=== PATIENT | male | born 1995 | race African-American/Black ===

== ENCOUNTER 2018-01-18 17:43 | Emergency (ER) | payer MEDICAID, OTHER ==
--- NOTE | 2018-01-18 18:13 | ER Document Report ---
ED Medical Screen (RME) - General Chief Complaint: Chest Pain Stated Complaint: CHEST/UPPER BODY PAIN Time Seen by Provider: 01/18/18 18:12 Mode of Arrival: Ambulatory Information source: Patient Notes: This is a 22-year-old man with no significant medical problems that was experiencing some chest pain last night for approximately 15 minutes. He denies any palpitations, lightheadedness or shortness of breath. He states he was working at [employer] and is been lifting a lot today and started having chest pain, back pain. He denies any shortness of breath. Medications: None Past medical history: None Social: He smokes rarely cigarettes. He denies any marijuana use. He adamantly denies cocaine. Family history: He denies any heart disease in his mother or father. He has 3 younger sisters and they do not have any medical problems. Patient denies any family history of exertional syncope or sudden . TRAVEL OUTSIDE OF THE [place] IN LAST 30 DAYS: No - HPI Onset: Yesterday Onset/Duration: Sudden Quality of pain: Dull Severity: Moderate Pain Level: 3 Associated Symptoms: Chest pain. denies: Nausea, Shortness of breath, Vomiting Exacerbated by: Movement Relieved by: Remaining still Similar symptoms previously: Yes Recently seen / treated by doctor: No - Related Data Smoking: Non-smoker Frequency of alcohol use: None Drug Abuse: None. No: Cocaine, Marijuana Allergies/Adverse Reactions: No Known Allergies Allergy (Verified 01/18/18 17:44) Past Medical History - General Information source: Patient - Social History Cigarette use (# per day): No Chew tobacco use (# tins/day): No Frequency of alcohol use: None Drug Abuse: None Lives with: Family Family history: None - Past Medical History Cardiac Medical History: Reports: None Pulmonary Medical History: Reports: Hx Asthma Renal/ Medical History: Denies: Hx Peritoneal Dialysis Surgical Hx: Negative - Immunizations Immunizations up to date: Yes Hx Diphtheria, Pertussis, Tetanus Vaccination: Yes Review of Systems - Review of Systems Constitutional: denies: Chills, Fever EENT: No symptoms reported Cardiovascular: Chest pain. denies: Palpitations, Heart racing, Syncope, Dizziness, Lightheaded Respiratory: denies: Cough, Short of breath, Wheezing Gastrointestinal: No symptoms reported Genitourinary: No symptoms reported Male Genitourinary: No symptoms reported Musculoskeletal: No symptoms reported Skin: No symptoms reported Hematologic/Lymphatic: No symptoms reported Neurological/Psychological: No symptoms reported Physical Exam - Vital signs Vitals: Temp Pulse Resp BP Pulse Ox 99.3 F 71 16 121/73 71 L 01/18/18 17:54 01/18/18 17:54 01/18/18 17:54 01/18/18 17:54 01/18/18 17:54 Notes: Physical exam: GENERAL: 22-year-old man, alert and oriented 3, no acute distress HEAD: Atraumatic, normocephalic. EYES: Pupils equal round and reactive to light, extraocular movements intact, sclera anicteric, conjunctiva are normal. ENT: TMs normal, nares patent, oropharynx clear without exudates. Moist mucous membranes. NECK: Normal range of motion, supple without obvious mass or JVD. LUNGS: Breath sounds clear to auscultation bilaterally and equal. No wheezes rales or rhonchi. HEART: Regular rate and rhythm without murmurs, rubs or gallops. ABDOMEN: Soft, normoactive bowel sounds. No tenderness to palpation. No guarding, no rebound. No masses appreciated. EXTREMITIES: Normal range of motion, no pitting or edema. No clubbing or cyanosis. NEUROLOGICAL: Cranial nerves II through XII grossly intact. Normal speech, moving all extremities. PSYCH: Normal mood, normal affect. SKIN: Warm, Dry, normal turgor, no rashes or lesions noted. Course - Vital Signs Vital signs: Temp Pulse Resp BP Pulse Ox 99.3 F 71 16 121/73 71 L 01/18/18 17:54 01/18/18 17:54 01/18/18 17:54 01/18/18 17:54 01/18/18 17:54 - Laboratory Result Diagrams: 01/18/18 18:24 01/18/18 18:24 Laboratory results interpreted by me: 01/18/18 18:24 ALT 17 L - Diagnostic Test Radiology reviewed: Image reviewed, Reports reviewed - Chest x-ray shows no or infiltrates. - EKG Interpretation by Me Rate: Normal Rhythm: NSR - EKG shows normal sinus rhythm with a ventricular rate of 62, no acute ST-T wave changes Doctor's Discharge - Discharge Clinical Impression: Chest wall pain Condition: Stable Disposition: HOME, SELF-CARE Instructions: Chest Wall Pain ([facility]) Additional Instructions: As we discussed, your chest x-ray looked quite good. Your EKG was normal. Your blood work included anemia studies, kidney studies, heart enzymes and liver function tests. All these labs were normal. Ultimately, I think the pain that you are experiencing is musculoskeletal. You could try ibuprofen for the pain. The test today look quite good. I would like you to follow-up with a primary care doctor. I left the number for primary care doctors below. In the meantime, return to the emergency room for worsening pain, shortness of breath or any concerns that she getting worse. Dr. Mirta Vazquez [address], [place] [address] [phone] Dr Jacobs Address: [address] [place] [address] [place] [address] Dr Hernandez Address: [address] [place] [address] [place] [address] Referrals: BRAXTON MCCULLOUGH MD [Primary Care Provider] - Follow up as needed
[2018-01-18 18:51] LABS: ABSOLUTE LYMPHOCYTES (AUTO) 0.9 10^3/uL (0.5-4.7); ABSOLUTE MONOCYTES (AUTO) 0.2 10^3/uL (0.1-1.4); ABSOLUTE NEUT (AUTO) 3.9 10^3/uL (1.7-8.2); BASOPHILS % (AUTO) 0.4 % (0-2); EOSINOPHILS % (AUTO) 0.4 % (0-6); HEMOGLOBIN 14.5 g/dL (13.5-17.0); LYMPHOCYTES % (AUTO) 17.3 % (13-45); MEAN CORPUSCULAR HEMOGLOBIN 27.5 pg (27.0-33.4); MEAN CORPUSCULAR HGB CONC 33.7 g/dL (32.0-36.0); MEAN CORPUSCULAR VOLUME 82 fl (80-97); MONOCYTES % (AUTO) 4.6 % (3-13); PLATELET COUNT 227 10^3/uL (150-450); RED BLOOD COUNT 5.27 10^6/uL (4.35-5.55); RED CELL DISTRIBUTION WIDTH 13.2 % (11.5-14.0); SEGMENTED NEUTROPHILS % (AUTO) 77.3 % (42-78); TOTAL CELLS COUNTED % (AUTO) 100 %; WHITE BLOOD COUNT 5.1 10^3/uL (4.0-10.5)
--- NOTE | 2018-01-18 18:51 | RADIOLOGY REPORT (SQ) ---
EXAM DESCRIPTION: CHEST 2 VIEWS COMPLETED DATE/TIME: 01/18/2018 6:41 pm REASON FOR STUDY: chest pain COMPARISON: 07/24/2013 EXAM PARAMETERS: NUMBER OF VIEWS: two views TECHNIQUE: Digital Frontal and Lateral radiographic views of the chest acquired. RADIATION DOSE: NA LIMITATIONS: none FINDINGS: LUNGS AND PLEURA: No opacities, masses or pneumothorax. No pleural effusion. MEDIASTINUM AND HILAR STRUCTURES: No masses or contour abnormalities. HEART AND VASCULAR STRUCTURES: Heart normal size. No evidence for failure. BONES: No acute findings. HARDWARE: None in the chest. OTHER: No other significant finding. IMPRESSION: NO ACUTE RADIOGRAPHIC FINDING IN THE CHEST. TECHNICAL DOCUMENTATION: JOB ID: [id number] [employer]- All Rights Reserved Reading location - IP/workstation name: [email or web address]
[2018-01-18 19:05] LABS: ALANINE AMINOTRANSFERASE 17 U/L (21-72); ALBUMIN 4.7 g/dL (3.5-5.0); ALKALINE PHOSPHATASE 55 U/L (38-126); ANION GAP 14 (5-19); ASPARTATE AMINO TRANSFERASE 20 U/L (17-59); BILIRUBIN,DIRECT 0.3 mg/dL (0.0-0.4); BILIRUBIN,TOTAL 0.9 mg/dL (0.2-1.3); BLOOD UREA NITROGEN 18 mg/dL (7-20); CARBON DIOXIDE 28 mmol/L (22-30); CHLORIDE 102 mmol/L (98-107); CREATINE KINASE 169 U/L (55-170); GLUCOSE 78 mg/dL (75-110); SODIUM 143.6 mmol/L (137-145); TOTAL PROTEIN 7.7 g/dL (6.3-8.2)
[2018-01-18 19:20] LABS: CREATINE KINASE MB < 0.22 ng/mL (<4.55); TROPONIN I < 0.012 ng/mL
[2018-01-18 19:28] VITALS: BP 114/63
--- NOTE | 2018-01-18 22:51 | EKG REPORT ---
SEVERITY:- ABNORMAL ECG - SINUS RHYTHM ST ELEVATION UNCHANGED FROM 07/24/13 EKG : Confirmed by: Marcio Noriega MD 18-Jan-2018 22:50:39
== END 2018-01-18 19:47 | disposition home or self-care (01) ==
LOC: ER 17:43
DX: R07.89 Other chest pain (principal); M54.9 Dorsalgia, unspecified
CPT/HCPCS: 36415; 71046; 80053; 82550; 82553; 84484; 85025; 93005; 93010; 99285

== ENCOUNTER 2019-07-15 15:52 | Emergency (ER) | payer OTHER ==
[2019-07-15] MEDS ORDERED: IBUPROFEN 800 MG TABLET PO ONE (16:56)
--- NOTE | 2019-07-15 17:00 | ER Document Report ---
HPI - HPI Patient complains to provider of: chest pain Time Seen by Provider: 07/15/19 16:49 Onset/Duration: Sudden Quality of pain: Other - tightness Pain Level: 2 Context: 23-year-old male with history of asthma no history of cardiac disease presents to the emergency department with complaints of right-sided chest pain radiates up his chest to his back. Denies shortness of breath. Denies fever vomiting diarrhea. Denies recent trip. Denies IV drugs narcotics cold medicines. Patient denies feeling nauseated or dizzy with symptoms. Reports his chest feels tight. Reports increased pain when he reaches for something with his right arm. Associated Symptoms: None. 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 IN LAST 30 DAYS: No - HEENT HEENT: Atraumatic, Normocephalic - NECK Neck: Normal Inspection, Supple. negative: Lymphadenopathy-Left, Lymphadenopathy-Right - RESPIRATORY Respiratory: Breath Sounds Normal, No Respiratory Distress, Chest Non-Tender - CARDIOVASCULAR Cardiovascular: Regular Rate, Regular Rhythm - GI/ABDOMEN Gastrointestinal: Abdomen Soft, Abdomen Non-Tender - BACK Back: Normal Inspection - MUSCULOSKELETAL/EXTREMETIES Musculoskeletal/Extremeties: MAEW, FROM, Non-Tender - NEURO Level of Consciousness: Awake, Alert, Appropriate Motor/Sensory: No Motor Deficit - DERM Integumentary: Warm, Dry Course - Re-evaluation Re-evalutation: 07/15/19 18:04 Chest X-Ray 07/15/19 16:56 IMPRESSION: NO ACUTE RADIOGRAPHIC FINDING IN THE CHEST. 07/15/19 18:17 Patient reports he feels much better after the ibuprofen. Reports it does not hurt when he reaches for anything. - Vital Signs Vital signs: Temp Pulse Resp BP Pulse Ox 98.6 F 68 18 131/81 H 100 07/15/19 16:09 07/15/19 16:09 07/15/19 16:09 07/15/19 16:09 07/15/19 16:09 - Diagnostic Test Radiology reviewed: Image reviewed, Reports reviewed - EKG Interpretation by Me EKG shows normal: Sinus rhythm Rate: Normal Rhythm: NSR When compared to previous EKG there are: No significant change Additional EKG results interpreted by me: 07/15/19 19:14 ST elevation unchanged from previous his EKG Discharge - Discharge Clinical Impression: Right-sided chest pain Condition: Stable Disposition: HOME, SELF-CARE Instructions: Chest Pain of Unclear Cause ([facility]) Additional Instructions: *You have been evaluated for sided chest pain of unclear cause *Follow up with a primary care provider within week for full evaluation and referral to 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
--- NOTE | 2019-07-15 17:36 | RADIOLOGY REPORT (SQ) ---
EXAM DESCRIPTION: CHEST 2 VIEWS COMPLETED DATE/TIME: 07/15/2019 5:18 pm REASON FOR STUDY: right side chest pain COMPARISON: 01/18/2018. EXAM PARAMETERS: NUMBER OF VIEWS: two views TECHNIQUE: Digital Frontal and Lateral radiographic views of the chest acquired. RADIATION DOSE: NA LIMITATIONS: none FINDINGS: LUNGS AND PLEURA: No opacities, masses or pneumothorax. No pleural effusion. MEDIASTINUM AND HILAR STRUCTURES: No masses or contour abnormalities. HEART AND VASCULAR STRUCTURES: Heart normal size. No evidence for failure. BONES: No acute findings. HARDWARE: None in the chest. OTHER: No other significant finding. IMPRESSION: NO ACUTE RADIOGRAPHIC FINDING IN THE CHEST. TECHNICAL DOCUMENTATION: JOB ID: [id number] 2010 [employer]- All Rights Reserved Reading location - IP/workstation name: [email or web address]
[2019-07-15 17:55] VITALS: BP 111/61
--- NOTE | 2019-07-15 20:12 | EKG REPORT ---
SEVERITY:- NORMAL ECG - SINUS RHYTHM ST ELEV, PROBABLE NORMAL EARLY REPOL PATTERN : Confirmed by: Marcio Noriega MD 15-Jul-2019 20:11:28
== END 2019-07-15 18:10 | disposition home or self-care (01) ==
LOC: ER 15:52
DX: R07.9 Chest pain, unspecified (principal); F17.290 Nicotine dependence, other tobacco product, uncomplicated
CPT/HCPCS: 71046; 93005; 93010

== ENCOUNTER 2019-07-25 02:59 | Inpatient (IN) | payer OTHER ==
[2019-07-25] MEDS ORDERED: DEXAMETHASONE SOD PHOS INJ 10 MG/1 ML VIAL IV ONE (03:36)
[2019-07-25] MEDS ORDERED: NORMAL SALINE 1000 ML 1,000 ML IV ONE (03:36)
[2019-07-25] MEDS ORDERED: KETOROLAC TROMETHAMINE INJ/PF 30 MG/1 ML SDV IV ONE (03:36)
[2019-07-25] MEDS ORDERED: AMPICILLIN SOD/SULBACTAM 3 GM VIAL IV ONE (03:37)
--- NOTE | 2019-07-25 03:39 | ER Document Report ---
ED ENT - General TRAVEL OUTSIDE OF THE U.S. IN LAST 30 DAYS: No <PATRICIA TOLBERT - Last Filed: 07/25/19 07:48> <ARYAN PHILLIPS - Last Filed: 07/25/19 09:08> - General Chief Complaint: Neck Problem Stated Complaint: NECK PAIN,SORE THROAT Time Seen by Provider: 07/25/19 03:26 Primary Care Provider: BRAXTON MCCULLOUGH MD [Primary Care Provider] - Follow up as needed Notes: Patient is a 23-year-old male that comes emergency department for chief complaint of worsening sore throat and pain on the right side of his neck that has been developing since Saturday (5 days). He denies fever, he is able to swallow but does report painful swallowing. He denies headache, vomiting, chest pain, abdominal pain. He denies any obvious sick exposures. He denies any daily medications or diagnosed medical history other than childhood asthma. (PATRICIA TOLBERT) - Related Data Allergies/Adverse Reactions: No Known Allergies Allergy (Verified 07/15/19 16:49) Past Medical History - General Information source: Patient - Social History Smoking Status: Never Smoker Frequency of alcohol use: None Drug Abuse: None Lives with: Family Family History: Reviewed & Not Pertinent Patient has suicidal ideation: No Patient has homicidal ideation: No Pulmonary Medical History: Reports: Hx Asthma Renal/ Medical History: Denies: Hx Peritoneal Dialysis Surgical Hx: Negative - Immunizations Immunizations up to date: Yes Hx Diphtheria, Pertussis, Tetanus Vaccination: Yes <PATRICIA TOLBERT - Last Filed: 07/25/19 07:48> Review of Systems - Review of Systems Constitutional: No symptoms reported EENT: See HPI Cardiovascular: No symptoms reported Respiratory: No symptoms reported Gastrointestinal: No symptoms reported Genitourinary: No symptoms reported Male Genitourinary: No symptoms reported Musculoskeletal: No symptoms reported Skin: No symptoms reported Hematologic/Lymphatic: No symptoms reported Neurological/Psychological: No symptoms reported <PATRICIA TOLBERT - Last Filed: 07/25/19 07:48> Physical Exam <PATRICIA TOLBERT - Last Filed: 07/25/19 07:48> - Vital signs Vitals: Temp Pulse Resp BP Pulse Ox 98.5 F 84 16 147/97 H 98 07/25/19 03:03 07/25/19 03:03 07/25/19 03:03 07/25/19 03:03 07/25/19 03:03 - Notes Notes: GENERAL: Patient appears uncomfortable and slightly ill-appearing but he is not toxic in appearance. He is responsive and cooperative HEAD: Normocephalic, atraumatic. EYES: Pupils equal, round, and reactive to light. Extraocular movements intact. ENT: Oral mucosa moist, tongue midline. Exudative pharyngitis noted bilaterally but there is swelling in the area of the right peritonsillar tissue which extends up to the uvula, there is no significant uvula displacement, airway patent. Voice is not muffled. Patient is handling secretions and not drooling. Nares patent, sinuses nontender. NECK: Full range of motion. Supple. Trachea midline. Lymphadenopathy noted on both sides but much more significant on the right. No Cruzito's angina. LUNGS: Clear to auscultation bilaterally, no wheezes, rales, or rhonchi. No respiratory distress. HEART: Regular rate and rhythm. No murmur ABDOMEN: Soft, non-tender. Non-distended. EXTREMITIES: Moves all 4 extremities spontaneously. No edema, normal radial and dorsalis pedis pulses bilaterally. No cyanosis. BACK: no cervical, thoracic, lumbar midline tenderness. No saddle anesthesia, normal distal neurovascular exam. NEUROLOGICAL: Alert and oriented x3. Normal speech. Cranial nerves II through XII grossly intact. PSYCH: Normal affect, normal mood. SKIN: Warm, dry, normal turgor. No rashes or lesions noted. (PATRICIA TOLBERT) Course - Laboratory Result Diagrams: 07/25/19 03:45 07/25/19 03:45 <PATRICIA TOLBERT - Last Filed: 07/25/19 07:48> - Laboratory Result Diagrams: 07/25/19 03:45 07/25/19 03:45 <ARYAN PHILLIPS - Last Filed: 07/25/19 09:08> - Re-evaluation Re-evalutation: Patient with obvious pharyngitis, exudates, questionable right-sided peritonsillar abscess. Patient is handling his secretions well, airway is patent, voice is not muffled. Patient will be given Unasyn, dexamethasone, Toradol, IV fluids, and kept n.p.o. Work-up pending. CBC unremarkable with slight elevation of neutrophils, chemistry unremarkable, strep is actually negative. Culture is pending. Patient reevaluated, still well-appearing, states he does feel improved after medications, no significant change in the oropharyngeal area on exam. CT of the soft tissues of the neck with IV contrast showing right-sided peritonsillar abscess with concern for possible retropharyngeal extension. Discussed with Dr. Horn. We do have ENT on-call and they will be contacted. 07/25/19 05:20 Called and spoke with Dr. Boo, ENT on-call, he states he will evaluate the images and call me back. 07/25/[address] Boo again. The recommendation is admission to hospitalist service, q8h doses of 10 mg IV dexamethasone (up to 3 total doses), IV antibiotics, and a repeat CT from 24 hours of the initial to reassess. He sta yuliana he is hoping that the retropharyngeal portion is significantly improved and he can personally drained the peritonsillar portion tomorrow. (PATRICIA TOLBERT) 07/25/19 08:39 Dr. Stewart in ER for patient evaluation. Will see patient, admit and place orders. (ARYAN PHILLIPS) - Vital Signs Vital signs: Temp Pulse Resp BP Pulse Ox 97.3 F 58 L 18 102/60 97 07/25/19 08:50 07/25/19 08:50 07/25/19 08:50 07/25/19 08:50 07/25/19 08:50 - Laboratory Laboratory results interpreted by me: 07/25/19 03:45 Lymph % (Auto) 8.5 L Seg Neutrophils % 80.1 H Discharge <PATRICIA TOLBERT - Last Filed: 07/25/19 07:48> - Discharge Admitting Provider: Terry (Hospitalist) Unit Admitted: Medical Floor <ARYAN PHILLIPS - Last Filed: 07/25/19 09:08> - Discharge Clinical Impression: Peritonsillar abscess, Retropharyngeal abscess, Exudative pharyngitis Condition: Stable Disposition: ADMITTED INPATIENT Referrals: BRAXTON MCCULLOUGH MD [Primary Care Provider] - Follow up as needed
[2019-07-25 04:11] LABS: ABSOLUTE EOSINOPHILS # (AUTO) 0.1 10^3/uL (0.0-0.6); ABSOLUTE LYMPHOCYTES (AUTO) 0.8 10^3/uL (0.5-4.7); ABSOLUTE MONOCYTES (AUTO) 1.1 10^3/uL (0.1-1.4); BASOPHILS % (AUTO) 0.3 % (0-2); EOSINOPHILS % (AUTO) 0.6 % (0-6); HEMOGLOBIN 14.4 g/dL (13.5-17.0); LYMPHOCYTES % (AUTO) 8.5 % (13-45); MEAN CORPUSCULAR HEMOGLOBIN 28.6 pg (27.0-33.4); MEAN CORPUSCULAR HGB CONC 35.1 g/dL (32.0-36.0); MEAN CORPUSCULAR VOLUME 81 fl (80-97); MONOCYTES % (AUTO) 10.5 % (3-13); PLATELET COUNT 239 10^3/uL (150-450); RED BLOOD COUNT 5.03 10^6/uL (4.35-5.55); RED CELL DISTRIBUTION WIDTH 13.1 % (11.5-14.0); SEGMENTED NEUTROPHILS % (AUTO) 80.1 % (42-78); TOTAL CELLS COUNTED % (AUTO) 100 %
[2019-07-25 04:27] LABS: ANION GAP 9 (5-19); BLOOD UREA NITROGEN 12 mg/dL (7-20); CALCIUM 8.7 mg/dL (8.4-10.2); CARBON DIOXIDE 28 mmol/L (22-30); CHLORIDE 104 mmol/L (98-107); GLUCOSE 95 mg/dL (75-110); POTASSIUM 3.7 mmol/L (3.6-5.0)
--- NOTE | 2019-07-25 05:09 | RADIOLOGY REPORT (SQ) ---
EXAM DESCRIPTION: CT NECK WITH IV CONTRAST COMPLETED DATE/TME: 07/25/2019 03:37 CLINICAL HISTORY: 23 years, Male, ? right sided peritonsillar abscess COMPARISON: None. TECHNIQUE: 244 Images stored on PACS. All CT scanners at this facility use dose modulation, iterative reconstruction, and/or weight based dosing when appropriate to reduce radiation dose to as low as reasonably achievable (ALARA). [facility]: Dose Right [facility]: CareDose [facility]: Dose Right [facility]: Teradose 4D [facility]: [employer] LIMITATIONS: None. FINDINGS: Limited evaluation of brain parenchyma is unremarkable. The globes are intact. The paranasal sinuses and mastoid air cells are unremarkable. Enlargement of the tonsillar pillars with an asymmetric area of peripherally enhancing centrally low density area of the right inferior tonsillar pillar measuring 2.1 x 2.2 cm consistent with right peritonsillar abscess. Surrounding inflammation and phlegmon. Inflammatory changes and phlegmon extend to the level of the epiglottis. There is some extension of the poorly defined inflammatory change and phlegmon into the retropharyngeal space worrisome for retropharyngeal extension of abscess. Lung apices are unremarkable. The airway remains widely patent. The epiglottis is normal. IMPRESSION: Right peritonsillar abscess with inflammatory changes and phlegmon, as above. Extension of poorly defined phlegmon into the retropharyngeal space worrisome for retropharyngeal extension of the phlegmon/abscess TECHNICAL DOCUMENTATION: Quality ID # 436: Final reports with documentation of one or more dose reduction techniques (e.g., Automated exposure control, adjustment of the mA and/or kV according to patient size, use of iterative reconstruction technique) copyright 2011 [employer]- All Rights Reserved
[2019-07-25] MEDS ORDERED: MORPHINE SULFATE 10 MG/ML INJ IV ONE (05:16)
[2019-07-25] MEDS ORDERED: ONDANSETRON HCL INJ/PF 4 MG/2 ML SDV IV ONE (05:16)
[2019-07-25] MEDS: FLUCONAZOLE 200 MG/NS RTU 200 MG/100 ML RTUPB IV SCH (09:49)
[2019-07-25] MEDS: DEXAMETHASONE SOD PHOS INJ 10 MG/1 ML VIAL IV SCH ×2 (12:26→20:06)
[2019-07-25] MEDS: AMPICILLIN SODIUM/SULBACTAM NA 3 GM in NORMAL SALINE 100 ML IV SCH ×2 (12:31→20:00)
--- NOTE | 2019-07-25 14:17 | PDOC H&P ---
History of Present Illness Admission Date/PCP: 07/25/19 09:16 BRAXTON MCCULLOUGH MD History of Present Illness: DALI PETERSON is a 23 year old male who presents with a 5-day history of worsening neck and throat pain on the right side. He said he came to this hospital about a week ago and at that point he was having some pain on the right side of his neck and they initially worked him up for chest pain and did not find anything and so they sent him home. He said he is not had any trouble breathing and he is not noticed any drainage, but he said it sometimes hurts to swallow saliva but he is able to swallow beverages without too much trouble. He is not been running a fever. CT scan showed a possible right peritonsillar abscess. ENT was consulted. They recommended inpatient management. Past Medical History Pulmonary Medical History: Reports: Asthma Social History Lives with: Family Smoking Status: Never Smoker Family History Family History: Reviewed & Not Pertinent Parental Family History Reviewed: Yes Children Family History Reviewed: NA Sibling(s) Family History Reviewed.: Yes Medication/Allergy Home Medications: No Home Medications 07/15/19 Allergies/Adverse Reactions: No Known Allergies Allergy (Verified 07/15/19 16:49) Review of Systems All systems: reviewed and no additional remarkable complaints except as stated - All systems were reviewed and were negative except as noted in the HPI Physical Exam Vital Signs: Temp Pulse Resp BP Pulse Ox 97.4 F 60 14 113/70 100 07/25/19 12:32 07/25/19 12:32 07/25/19 12:32 07/25/19 12:32 07/25/19 12:32 Intake & Output 07/24/19 07/25/19 07/26/19 06:59 06:59 06:59 Intake Total 1200 Balance 1200 Weight 53.1 kg General appearance: PRESENT: no acute distress, cooperative, thin, other - He had at least one tattoo that I noticed, on his right forearm, of some [employer] numerals and a date in standard numbers underneath. He also had a ring piercing his nose Eye exam: PRESENT: EOMI, PERRLA. ABSENT: conjunctival injection, nystagmus, scleral icterus Ear exam: PRESENT: normal external ear exam Mouth exam: PRESENT: moist, neck supple, other - He had some swelling in the right posterior oropharynx but the airway was patent Throat exam: PRESENT: tonsillar erythema - Right side, tonsillogmegaly - Right side. ABSENT: tonsillar exudate Neck exam: PRESENT: full ROM, lymphadenopathy, tenderness. ABSENT: carotid bruit, JVD, meningismus, thyromegaly Respiratory exam: PRESENT: clear to auscultation celestina, symmetrical, unlabored. ABSENT: accessory muscle use, chest wall tenderness, crackles, prolonged expiratory phas, retraction, rhonchi, tachypnea, wheezes Cardiovascular exam: PRESENT: RRR, +S1, +S2 Pulses: PRESENT: normal carotid pulses Vascular exam: PRESENT: normal capillary refill GI/Abdominal exam: PRESENT: normal bowel sounds, soft. ABSENT: distended, guarding, rebound, tenderness Extremities exam: ABSENT: clubbing, pedal edema Musculoskeletal exam: PRESENT: normal inspection. ABSENT: deformity Neurological exam: PRESENT: alert, awake, oriented to person, oriented to place, oriented to time, oriented to situation, CN II-XII grossly intact. ABSENT: motor sensory deficit Psychiatric exam: PRESENT: appropriate affect, normal mood Skin exam: PRESENT: dry, warm Results Laboratory Results: 07/25/19 03:45 07/25/19 03:45 07/25/19 07/25/19 03:45 03:45 WBC 10.0 RBC 5.03 Hgb 14.4 Hct 41.0 MCV 81 MCH 28.6 MCHC 35.1 RDW 13.1 Plt Count 239 Seg Neutrophils % 80.1 H Sodium 141.0 Potassium 3.7 Chloride 104 Carbon Dioxide 28 Anion Gap 9 BUN 12 Creatinine 0.81 Est GFR ( Amer) > 60 Glucose 95 Calcium 8.7 Impressions: Soft Tissue Neck CT 07/25/19 03:37 IMPRESSION: Right peritonsillar abscess with inflammatory changes and phlegmon, as above. Extension of poorly defined phlegmon into the retropharyngeal space worrisome for retropharyngeal extension of the phlegmon/abscess TECHNICAL DOCUMENTATION: Quality ID # 436: Final reports with documentation of one or more dose reduction techniques (e.g., Automated exposure control, adjustment of the mA and/or kV according to patient size, use of iterative reconstruction technique) copyright 2011 [employer]- All Rights Reserved Assessment and Plan - Diagnosis (1) Peritonsillar abscess Is this a current diagnosis for this admission?: Yes Plan: Concern for retropharyngeal extension. ENT has been consulted. He is getting 3 doses of IV Decadron and he is been started on IV Unasyn. A repeat scan will be done tomorrow to evaluate for interval change and to determine the need for surgical drainage. - Time Time Spent with patient: 35 or more minutes - Inpatient Certification Based on my medical assessment, after consideration of the patient's comorbidities, presenting symptoms, or acuity I expect that the services needed warrant INPATIENT care.: Yes I certify that my determination is in accordance with my understanding of Medicare's requirements for reasonable and necessary INPATIENT services [42 CFR 412.3e].: Yes Medical Necessity: Need Close Monitoring Due to Risk of Patient Decompensation, Need For IV Fluids, Need for IV Antibiotics, Need for Surgery
[2019-07-25] MEDS ORDERED: AMPICILLIN SOD/SULBACTAM 3 GM VIAL ONE (18:11)
[2019-07-25] MEDS ORDERED: INFLUENZA QUAD (6MOS+) 2019-20 VAC 0.5 ML SYR IM ONE (18:41)
[2019-07-26] MEDS: AMPICILLIN SODIUM/SULBACTAM NA 3 GM in NORMAL SALINE 100 ML IV SCH ×4 (00:55→18:01)
[2019-07-26 06:15] LABS: HEMATOCRIT 37.3 % (37.9-51.0); HEMOGLOBIN 12.6 g/dL (13.5-17.0); MEAN CORPUSCULAR HEMOGLOBIN 27.5 pg (27.0-33.4); MEAN CORPUSCULAR HGB CONC 33.8 g/dL (32.0-36.0); MEAN CORPUSCULAR VOLUME 81 fl (80-97); PLATELET COUNT 270 10^3/uL (150-450); RED BLOOD COUNT 4.59 10^6/uL (4.35-5.55); RED CELL DISTRIBUTION WIDTH 13.1 % (11.5-14.0); WHITE BLOOD COUNT 15.7 10^3/uL (4.0-10.5)
[2019-07-26 06:37] LABS: ANION GAP 7 (5-19); BLOOD UREA NITROGEN 14 mg/dL (7-20); CALCIUM 9.6 mg/dL (8.4-10.2); CARBON DIOXIDE 29 mmol/L (22-30); CHLORIDE 104 mmol/L (98-107); GLUCOSE 137 mg/dL (75-110); POTASSIUM 4.5 mmol/L (3.6-5.0)
[2019-07-26 07:19] LABS: ABSOLUTE LYMPHOCYTES# (MANUAL) 0.8 10^3/uL (0.5-4.7); ABSOLUTE MONOCYTES # (MANUAL) 0.6 10^3/uL (0.1-1.4); BASOPHILS % (MANUAL) 0 % (0-2); EOSINOPHILS % (MANUAL) 0 % (0-6); LYMPHOCYTES % (MANUAL) 5 % (13-45); MONOCYTES % (MANUAL) 4 % (3-13); SEGMENTED NEUTROPHILS % (MAN) 91 % (42-78); TOTAL CELLS COUNTED 100
[2019-07-26 07:20] LABS: PLATELET COMMENT ADEQUATE; RBC MORPHOLOGY COMMENT NORMO-CYTIC/CHROMIC; TOXIC GRANULATION SLIGHT
[2019-07-26] MEDS: FLUCONAZOLE 200 MG/NS RTU 200 MG/100 ML RTUPB IV SCH (09:25)
--- NOTE | 2019-07-26 12:14 | RADIOLOGY REPORT (SQ) ---
EXAM DESCRIPTION: CT SOFT TISSUE NECK WITH COMPLETED DATE/TIME: 07/26/2019 10:32 am REASON FOR STUDY: Abscess Follow Up (determine if needs to be drained) COMPARISON: None. TECHNIQUE: Post IV contrasted scanning from skull base through lung apices with review of bone, soft tissue and lung windows. Reconstructed coronal and sagittal MPR images reviewed. All images stored on PACS. All CT scanners at this facility use dose modulation, iterative reconstruction, and/or weight based d osing when appropriate to reduce radiation dose to as low as reasonably achievable (ALARA). [facility]: Dose Right [facility]: CareDose [facility]: Dose Right [facility]: Teradose 4D [facility]: [employer] CONTRAST TYPE AND DOSE: contrast/concentration: Isovue 350.00 mg/ml; Total Contrast Delivered: 75.0 ml; Total Saline Delivered: 55.0 ml RENAL FUNCTION: None required. The patient is less than 50 years old. RADIATION DOSE: CT Rad equipment meets quality standard of care and radiation dose reduction techniq ues were employed. CTDIvol: 7.3 mGy. DLP: 198 mGy-cm. . LIMITATIONS: None. FINDINGS: SKULL BASE: Intact. MAJOR SALIVARY GLANDS: No solid or cystic masses. No inflammatory changes. LYMPHADENOPATHY: No adenopathy. MUCOSAL MASSES OR ASYMMETRY: No mucosal masses or asymmetry. There is been interval near complete dr ainage of the right peritonsillar abscess since previous examination. Tiny amount of residual fluid. LARYNX/CORDS: No abnormal findings. VASCULAR STRUCTURES: The major vessels are patent. LUNG APICES: Clear. BONES: Intact. THYROID: Normal size. No masses. PARANASAL SINUSES: Clear. OTHER: No other significant finding. IMPRESSION: Interval drainage of the right peritonsillar abscess with tiny residual amount of fluid. TECHNICAL DOCUMENTATION: JOB ID: [id number] Quality ID # [id number]: Final reports with documentation of one or more dose reduction techniques (e.g., Au tomated exposure control, adjustment of the mA and/or kV according to patient size, use of iterative reconstruction technique) 2010 [employer]- All Rights Reserved Reading location - IP/workstation name: [email or web address]
--- NOTE | 2019-07-26 15:37 | PDOC PROGRESS REPORT ---
Subjective Progress Note for:: 07/26/19 Subjective:: No adverse events overnight. No new complaints. He is not had any trouble breathing. His throat is not as sore. He said he is able to swallow liquids without any difficulty. No fevers. Blood cultures have been negative. Reason For Visit: PERITONSILLAT ABSCESS, THRUS Physical Exam Vital Signs: Temp Pulse Resp BP Pulse Ox 97.9 F 68 12 130/72 H 98 07/26/19 12:00 07/26/19 12:00 07/26/19 12:00 07/26/19 12:00 07/26/19 12:00 Intake & Output 07/25/19 07/26/19 07/27/19 06:59 06:59 06:59 Intake Total 1500 370 Balance 1500 370 Weight 53.1 kg 50.7 kg General appearance: PRESENT: no acute distress, cooperative, thin Mouth exam: PRESENT: other - Still has some signs of thrush on his tongue but is substantially improved from admission Throat exam: PRESENT: tonsillogmegaly - Mild, other - No signs of airway compromise. ABSENT: tonsillar erythema, tonsillar exudate Results Laboratory Results: 07/26/19 05:36 07/26/19 05:36 07/26/19 07/26/19 05:36 05:36 WBC 15.7 H RBC 4.59 Hgb 12.6 L Hct 37.3 L MCV 81 MCH 27.5 MCHC 33.8 RDW 13.1 Plt Count 270 Seg Neutrophils % Not Reportable Sodium 140.2 Potassium 4.5 Chloride 104 Carbon Dioxide 29 Anion Gap 7 BUN 14 Creatinine 0.63 Est GFR ( Amer) > 60 Glucose 137 H Calcium 9.6 Impressions: Soft Tissue Neck CT 07/26/19 08:00 IMPRESSION: Interval drainage of the right peritonsillar abscess with tiny residual amount of fluid. Assessment and Plan - Diagnosis (1) Peritonsillar abscess Is this a current diagnosis for this admission?: Yes Plan: Has received 3 doses of Decadron and has been on IV Unasyn. Repeat CT shows improvement in Dr. Mckinley does not think he is going to need incision and drainage. We will let him advance his diet as tolerated. If he is able to do so okay overnight, will plan on discharge home tomorrow on Augmentin. - Time Time Spent with patient: 15-24 minutes
--- NOTE | 2019-07-26 15:57 | PDOC CONSULTATION ---
Consultation Consult Date: 07/25/19 Provider Consulted: JOSE RAUL BOO Consult reason:: 23-year-old Afro-[place] male with 5-day history of worsening sore throat symptoms with ER evaluation to include CT neck imaging with a right peritonsillar and a retropharyngeal space abscess processes. History of Present Illness Admission Date/PCP: 07/25/19 09:16 BRAXTON MCCULLOUGH MD History of Present Illness: DLAI PETERSON is a 23 year old male complained of worsening sore throat symptoms over 5 days to the point that he went to the [facility] ER for evaluation in the qa consultant hours of July 25, [address] neck with contrast imaging with radiology concern for both a right peritonsillar, greater than 2 x 2 centimeter abscess, and a retropharyngeal space abscess/phlegmon process. Dr. Boo, ENT, was consulted by ER staff for management with recommendation and plan for admission to the hospitalist service at [facility] and the initiation of IV antibiotics and steroids with overnight monitoring and repeat CT neck imaging in 24 to 36 hours. The ER staff and hospitalist staff were all in agreement and the patient was admitted onto the hospitalist service with ENT following as consultants. The patient was seen by ENT on the evening of July 25, 2019. The patient reported feeling much better overall and felt as though his symptoms were more isolated to his right throat/tonsil area. He denied fever, chills, nausea, or vomiting. He has been able to maintain reasonable p.o. intake. The patient denied history of acute recurrent tonsillitis or chronic tonsillitis type symptoms over the years. The patient and his mother understood that a repeat CT neck with contrast imaging would be performed in 24 to [address] in the ER setting to check for progression of the inflammatory/infectious/abscess process to the retropharyngeal spaces and if this was the case then incision and drainage would need to be managed in the operating room setting versus the hospital room setting if it were just a right peritonsillar abscess. They voiced an understanding of all that was discussed and were in agreement. Past Medical History Cardiac Medical History: Reports: None Pulmonary Medical History: Reports: None, Asthma EENT Medical History: Reports: Other - Same as above and see HPI Neurological Medical History: Reports: None Endocrine Medical History: Reports: None Renal/ Medical History: Reports: None Malignancy Medical History: Reports: None GI Medical History: Reports: None Musculoskeltal Medical History: Reports: None Skin Medical History: Reports: None Psychiatric Medical History: Reports: None Denies: Depression Traumatic Medical History: Reports: None Hematology: Reports: None Infectious Medical History: Reports: None Past Surgical History Past Surgical History: Reports: None Social History Information Source: Patient Lives with: Family Smoking Status: Never Smoker Electronic Cigarette use?: No Frequency of Alcohol Use: None Hx Recreational Drug Use: No Drugs: None Hx Prescription Drug Abuse: No - Advance Directive Resuscitation Status: Full Code Family History Family History: Reviewed & Not Pertinent Parental Family History Reviewed: Yes Children Family History Reviewed: NA Sibling(s) Family History Reviewed.: NA Medication/Allergy Home Medications: No Home Medications 07/15/19 Allergies/Adverse Reactions: No Known Allergies Allergy (Verified 07/15/19 16:49) Review of Systems All systems: reviewed and no additional remarkable complaints except as stated - Except for current illness as detailed throughout this consult note. Constitutional: PRESENT: as per HPI Eyes: PRESENT: as per HPI Ears: PRESENT: as per HPI Nose, Mouth, and Throat: PRESENT: as per HPI Cardiovascular: PRESENT: as per HPI Respiratory: PRESENT: as per HPI Gastrointestinal: PRESENT: as per HPI Genitourinary: PRESENT: as per HPI Musculoskeletal: PRESENT: as per HPI Integumentary: PRESENT: as per HPI Neurological: PRESENT: as per HPI Endocrine: PRESENT: as per HPI Hematologic/Lymphatic: PRESENT: as per HPI Allergic/Immunologic: PRESENT: as per HPI Physical Exam Vital Signs: Temp Pulse Resp BP Pulse Ox 97.9 F 68 12 130/72 H 98 07/26/19 12:00 07/26/19 12:00 07/26/19 12:00 07/26/19 12:00 07/26/19 12:00 Intake & Output 07/25/19 07/26/19 07/27/19 06:59 06:59 06:59 Intake Total 1500 370 Balance 1500 370 Weight 53.1 kg 50.7 kg General appearance: PRESENT: no acute distress, cooperative Head exam: PRESENT: atraumatic Eye exam: PRESENT: EOMI Ear exam: PRESENT: normal external ear exam Mouth exam: PRESENT: moist, tongue midline, other - Macroglossia is noted, and left tonsillar areas unremarkable, and the right tonsillar area is concerning for a peritonsillar abscess/phlegmon/inflammatory type process Throat exam: PRESENT: other - Same as above Neck exam: PRESENT: full ROM - The patient's neck is with full range of motion without discomfort, but when he was in the ER he said his neck range of motion was significantly limited and with increased discomfort, other - The neck is supple with no concerning lymphadenopathy, the right upper neck is mildly TTP on exam Respiratory exam: PRESENT: symmetrical, unlabored - And patient talking in a normal voice Cardiovascular exam: PRESENT: RRR Extremities exam: PRESENT: full ROM Musculoskeletal exam: PRESENT: full ROM - The patient is resting in his hospital bed but able to freely move without difficulty Neurological exam: PRESENT: alert, awake, oriented to person, oriented to place, oriented to time, oriented to situation, CN II-XII grossly intact Psychiatric exam: PRESENT: appropriate affect Skin exam: PRESENT: dry, warm Results Laboratory Results: 07/26/19 05:36 07/26/19 05:36 07/26/19 07/26/19 05:36 05:36 WBC 15.7 H RBC 4.59 Hgb 12.6 L Hct 37.3 L MCV 81 MCH 27.5 MCHC 33.8 RDW 13.1 Plt Count 270 Seg Neutrophils % Not Reportable Sodium 140.2 Potassium 4.5 Chloride 104 Carbon Dioxide 29 Anion Gap 7 BUN 14 Creatinine 0.63 Est GFR ( Amer) > 60 Glucose 137 H Calcium 9.6 Impressions: Soft Tissue Neck CT 07/26/19 08:00 IMPRESSION: Interval drainage of the right peritonsillar abscess with tiny residual amount of fluid. Status: Imported from PACS - Both CT neck with contrast imaging studies were evaluated and discussed in part with the patient and his mother and ER staff, and in full with the hospitalist staff with notable improvement from the qa consultant July 25 study to the morning study on July 26 which demonstrated no concern for a retropharyngeal space process and a significantly improved right peritonsillar abscess/inflammatory/phlegmon process with very limited to little fluid noted in this area. Assessment & Plan - Diagnosis (1) Peritonsillar abscess Is this a current diagnosis for this admission?: Yes (2) Throat pain in adult Is this a current diagnosis for this admission?: Yes - Time Time Spent: 50 to 70 Minutes - The total time element of 50 to 70 minutes is listed to account for overall time spent beginning in the qa consultant hours of July 25, 2019 with extensive discussion with ER staff and evaluation of the CT neck with contrast imaging with railroad design consultant recommendation for inpatient admission to the hospitalist service, ENT inpatient consult on the evening of , and follow-up CT neck imaging evaluation and extensive discussion with the hospitalist staff during the day on July 26, 2019. - Plan Summary Plan Summary: Extensive discussion with the hospitalist staff during the day on July 26, 2019 following the serial/repeat CT neck with contrast imaging demonstrating no concern for a retropharyngeal space process, and even considerable improvement in the right peritonsillar space abscess/inflammatory process/phlegmon with no indications for I&D/incision and drainage with plan for discharge to home by the hospitalist service today with completion of an out patient antibiotic course and follow-up with his PCM as indicated which the hospitalist staff will discuss in detail with the patient and his mother and [facility] ENT remains available as needed and there are no recommendations for tonsil surgery at present.
[2019-07-27] MEDS: AMPICILLIN SODIUM/SULBACTAM NA 3 GM in NORMAL SALINE 100 ML IV SCH ×3 (00:12→12:48)
[2019-07-27 06:52] LABS: ABSOLUTE MONOCYTES (AUTO) 0.9 10^3/uL (0.1-1.4); BASOPHILS % (AUTO) 0.1 % (0-2); HEMATOCRIT 36.3 % (37.9-51.0); HEMOGLOBIN 12.3 g/dL (13.5-17.0); LYMPHOCYTES % (AUTO) 6.7 % (13-45); MEAN CORPUSCULAR HEMOGLOBIN 27.6 pg (27.0-33.4); MEAN CORPUSCULAR HGB CONC 33.9 g/dL (32.0-36.0); MEAN CORPUSCULAR VOLUME 81 fl (80-97); MONOCYTES % (AUTO) 6.3 % (3-13); PLATELET COUNT 273 10^3/uL (150-450); RED BLOOD COUNT 4.46 10^6/uL (4.35-5.55); RED CELL DISTRIBUTION WIDTH 13.1 % (11.5-14.0); SEGMENTED NEUTROPHILS % (AUTO) 86.9 % (42-78); TOTAL CELLS COUNTED % (AUTO) 100 %
[2019-07-27 07:14] LABS: ANION GAP 7 (5-19); BLOOD UREA NITROGEN 14 mg/dL (7-20); CALCIUM 9.4 mg/dL (8.4-10.2); CARBON DIOXIDE 31 mmol/L (22-30); CHLORIDE 103 mmol/L (98-107); GLUCOSE 100 mg/dL (75-110); POTASSIUM 4.1 mmol/L (3.6-5.0)
[2019-07-27] MEDS: FLUCONAZOLE 200 MG/NS RTU 200 MG/100 ML RTUPB IV SCH (10:11)
[2019-07-27 13:27] VITALS: BP 103/53
--- NOTE | 2019-07-27 14:54 | PDOC DISCHARGE SUMMARY ---
Impression - Admit/DC Date/PCP Admission Date/Primary Care Provider: 07/25/19 09:16 BRAXTON MCCULLOUGH MD Discharge Date: 07/27/19 - Discharge Diagnosis (1) Peritonsillar abscess Is this a current diagnosis for this admission?: Yes - Additional Information Resuscitation Status: Full Code Discharge Diet: Regular Discharge Activity: Activity As Tolerated Referrals: BRAXTON MCCULLOUGH MD [Primary Care Provider] - Prescriptions: Amoxicillin/Potassium Clav [Augmentin 875-125 Tablet] 1 tab PO BID #20 tab Fluconazole [Diflucan 100 mg Tablet] 100 mg PO DAILY #3 tablet Home Medications: Amoxicillin/Potassium Clav [Augmentin 875-125 Tablet] 1 tab PO BID #20 tab 07/27/19 Fluconazole [Diflucan 100 mg Tablet] 100 mg PO DAILY #3 tablet 07/27/19 History of Present Illiness History of Present Illness: DALI PETERSON is a 23 year old male who presents with a 5-day history of worsening neck and throat pain on the right side. He said he came to this hospital about a week ago and at that point he was having some pain on the right side of his neck and they initially worked him up for chest pain and did not find anything and so they sent him home. He said he is not had any trouble breathing and he is not noticed any drainage, but he said it sometimes hurts to swallow saliva but he is able to swallow beverages without too much trouble. He is not been running a fever. CT scan showed a possible right peritonsillar abscess. ENT was consulted. They recommended inpatient management. Hospital Course Hospital Course: He improved rapidly in response to 3 doses of Decadron, IV Unasyn, and fluconazole. Repeat scan showed that he did not have it abscess and that the inflammation in his posterior oropharynx and peritonsillar areas had dropped substantially. His thrush also improved substantially. He is getting a few more days of some Diflucan as well as 10 more days of Augmentin. He was eating and drinking without difficulty. His HIV screen was negative. His labs and examination were reassuring and he was discharged in stable condition. Physical Exam Vital Signs: Temp Pulse Resp BP Pulse Ox 98.7 F 56 L 16 103/53 L 99 07/27/19 14:44 07/27/19 14:44 07/27/19 14:44 07/27/19 14:44 07/27/19 14:44 Intake & Output 07/26/19 07/27/19 07/28/19 06:59 06:59 06:59 Intake Total 1500 1430 200 Balance 1500 1430 200 Weight 50.7 kg 52.8 kg General appearance: PRESENT: no acute distress, cooperative, thin Mouth exam: PRESENT: other - Still has some signs of thrush on his tongue but is substantially improved from admission Throat exam: PRESENT: tonsillogmegaly - Mild, other - No signs of airway compromise. ABSENT: tonsillar erythema, tonsillar exudate Results Laboratory Results: WBC 15.0 10^3/uL (4.0-10.5) H 07/27/19 06:13 RBC 4.46 10^6/uL (4.35-5.55) 07/27/19 06:13 Hgb 12.3 g/dL (13.5-17.0) L 07/27/19 06:13 Hct 36.3 % (37.9-51.0) L 07/27/19 06:13 MCV 81 fl (80-97) 07/27/19 06:13 MCH 27.6 pg (27.0-33.4) 07/27/19 06:13 MCHC 33.9 g/dL (32.0-36.0) 07/27/19 06:13 RDW 13.1 % (11.5-14.0) 07/27/19 06:13 Plt Count 273 10^3/uL (150-450) 07/27/19 06:13 Lymph % (Auto) 6.7 % (13-45) L 07/27/19 06:13 [place] % (Auto) 6.3 % (3-13) 07/27/19 06:13 Eos % (Auto) 0.0 % (0-6) 07/27/19 06:13 Baso % (Auto) 0.1 % (0-2) 07/27/19 06:13 Absolute Neuts (auto) 13.0 10^3/uL (1.7-8.2) H 07/27/19 06:13 Absolute Lymphs (auto) 1.0 10^3/uL (0.5-4.7) 07/27/19 06:13 Absolute Monos (auto) 0.9 10^3/uL (0.1-1.4) 07/27/19 06:13 Absolute Eos (auto) 0.0 10^3/uL (0.0-0.6) 07/27/19 06:13 Absolute Basos (auto) 0.0 10^3/uL (0.0-0.2) 07/27/19 06:13 Total Counted 100 07/26/19 05:36 Seg Neutrophils % 86.9 % (42-78) H 07/27/19 06:13 Seg Neuts % (Manual) 91 % (42-78) H 07/26/19 05:36 Lymphocytes % (Manual) 5 % (13-45) L 07/26/19 05:36 Monocytes % (Manual) 4 % (3-13) 07/26/19 05:36 Eosinophils % (Manual) 0 % (0-6) 07/26/19 05:36 Basophils % (Manual) 0 % (0-2) 07/26/19 05:36 Abs Neuts (Manual) 14.3 10^3/uL (1.7-8.2) H 07/26/19 05:36 Abs Lymphs (Manual) 0.8 10^3/uL (0.5-4.7) 07/26/19 05:36 Abs Monocytes (Manual) 0.6 10^3/uL (0.1-1.4) 07/26/19 05:36 Absolute Eos (Manual) 0.0 10^3/uL (0.0-0.6) 07/26/19 05:36 Abs Basophils (Manual) 0.0 10^3/uL (0.0-0.2) 07/26/19 05:36 Toxic Granulation SLIGHT 07/26/19 05:36 Platelet Comment ADEQUATE 07/26/19 05:36 RBC Morph Comment NORMO-CYTIC/CHROMIC 07/26/19 05:36 Sodium 140.8 mmol/L (137-145) 07/27/19 06:13 Potassium 4.1 mmol/L (3.6-5.0) 07/27/19 06:13 Chloride 103 mmol/L (98-107) 07/27/19 06:13 Carbon Dioxide 31 mmol/L (22-30) H 07/27/19 06:13 Anion Gap 7 (5-19) 02/24/20 06:13 BUN 14 mg/dL (7-20) 07/27/19 06:13 Creatinine 0.68 mg/dL (0.52-1.25) 07/27/19 06:13 Est GFR ( Amer) > 60 (>60) 07/27/19 06:13 Est GFR (MDRD) Non-Af > 60 (>60) 07/27/19 06:13 Glucose 100 mg/dL (75-110) 07/27/19 06:13 Calcium 9.4 mg/dL (8.4-10.2) 07/27/19 06:13 HIV 1&2 Antibody NEGATIVE (NEGATIVE) 07/25/19 09:50 Group A Strep Rapid NEGATIVE (NEGATIVE) 07/25/19 03:45 Impressions: Soft Tissue Neck CT 07/25/19 03:37 IMPRESSION: Right peritonsillar abscess with inflammatory changes and phlegmon, as above. Extension of poorly defined phlegmon into the retropharyngeal space worrisome for retropharyngeal extension of the phlegmon/abscess TECHNICAL DOCUMENTATION: Quality ID # 436: Final reports with documentation of one or more dose reduction techniques (e.g., Automated exposure control, adjustment of the mA and/or kV according to patient size, use of iterative reconstruction technique) copyright 2011 [employer]- All Rights Reserved Soft Tissue Neck CT 07/26/19 08:00 IMPRESSION: Interval drainage of the right peritonsillar abscess with tiny residual amount of fluid. Plan Time Spent: Less than 30 Minutes Stroke Is this a Stroke Patient?: No Acute Heart Failure - Is this a Heart Failure Patient?: No
== END 2019-07-27 15:08 | disposition home or self-care (01) | DRG 153 ==
LOC: ER 02:59 → EH 09:16 → 5 17:00
PROVIDERS: ADMIT Family Medicine; ATTEND Family Medicine
DX: J36 Peritonsillar abscess (principal); B37.0 Candidal stomatitis; J39.0 Retropharyngeal and parapharyngeal abscess; Z23 Encounter for immunization
CPT/HCPCS: 36415; 70491; 80048; 85025; 86701; 87040; 87070; 87880; 90686; 96365; 96366; 96375; 99284; J0295; J1100; J1450; J1885; J2270; J2405; J7030; J7050

== ENCOUNTER → 2020-02-12 | Outpatient (CLI) | payer OTHER ==
--- NOTE | 2020-02-12 13:51 | RADIOLOGY REPORT (SQ) ---
EXAM DESCRIPTION: VENOUS UNILATERAL LOWER IMAGES COMPLETED DATE/TIME: 02/12/2020 1:38 pm REASON FOR STUDY: RLE PAIN M79.661 PAIN IN RIGHT LOWER LEG COMPARISON: None. TECHNIQUE: Dynamic and static avery scale and color images acquired of the right leg venous system. S elected spectral images acquired with additional compression and augmentation maneuvers. The contrala teral common femoral vein and saphenofemoral junction were also imaged. Images stored on PACS. LIMITATIONS: None. FINDINGS: COMMON FEMORAL: Normal phasicity, compression and augmentation. No visualized echogenic ma terial on avery scale. No defects on color images. FEMORAL: Normal compression and augmentation. No visualized echogenic material on avery scale. No defe cts on color images. POPLITEAL: Normal compression, augmentation. No visualized echogenic material on avery scale. No defec ts on color images. CALF VESSELS: Normal compression, augmentation. No visualized echogenic material on avery scale. No de fects on color images. GSV and SSV: Normal compression, augmentation. No visualized echogenic material on avery scale. No def ects on color images. ANY DEEP VENOUS INSUFFICIENCY: Not evaluated. ANY EVIDENCE OF POPLITEAL CYST: No. OTHER: No other significant finding. CONTRALATERAL COMMON FEMORAL VEIN AND SAPHENOFEMORAL JUNCTION: Normal phasicity, compression and augmentation. No visualized echogenic material on avery scale. No de fects on color images. IMPRESSION: NO EVIDENCE DVT OR SVT IN THE RIGHT LEG. TECHNICAL DOCUMENTATION: JOB ID: [id number] 2010 [employer]- All Rights Reserved Reading location - IP/workstation name: [email or web address]
== END ==
LOC: SP 12:44
PROVIDERS: ATTEND Nurse Practitioner Family
DX: M79.661 Pain in right lower leg (principal)
CPT/HCPCS: 93971